=== PATIENT | male | born 1995 | race Asian ===

== ENCOUNTER 2024-11-17 16:22 | Emergency (ER) | payer OTHER ==
[~2024-11-17] VITALS: Ht 180.3 cm; Wt 97.0 kg
[2024-11-17 16:29] VITALS: BP 146/94; PULSE 114; RESP 18; TEMP 36.7; O2SAT 94
[2024-11-17 17:20] LABS: HEMATOCRIT. 44.5 % (42.0-52.0); HEMOGLOBIN. 15.2 g/dL (14.0-18.0); LYMPHOCYTES % 13.6 % (20.0-50.0); MEAN CORPUSCULAR HEMOGLOBIN 32.8 pg (28.0-32.0); MEAN CORPUSCULAR HGB CONC 34.2 g/dL (31.0-37.0); MEAN CORPUSCULAR VOLUME 95.9 fL (80.0-94.0); MEAN PLATELET VOLUME 9.2 fl (7.4-10.4); MONOCYTES % 4.9 % (2.0-8.0); NEUTROPHILS % 78.5 % (40.0-76.0); PLATELET 179 x1000/uL (130-400); RED BLOOD CELL COUNT 4.64 mill/uL (4.7-6.1); RED CELL DISTRIBUTION WIDTH 14.3 % (11.6-14.6); WHITE BLOOD COUNT 7.1 x1000/uL (4.5-11.0)
[2024-11-17 17:29] LABS: CHLORIDE 103 mEq/L (98-107); POTASSIUM 3.4 mEq/L (3.5-5.1); SODIUM 141 mEq/L (136-145)
[2024-11-17 17:30] LABS: CARBON DIOXIDE 23 mEq/L (21-32)
[2024-11-17 17:31] LABS: CALCIUM 9.5 mg/dL (8.7-10.4)
[2024-11-17 17:35] LABS: CREATININE 0.8 mg/dL (0.6-1.3)
[2024-11-17 17:36] LABS: GLUCOSE 129 mg/dL (70-105); UREA NITROGEN BLOOD < 5 mg/dL (9-23)
[2024-11-17 17:37] LABS: ALANINE AMINOTRANSFERASE 116 IU/L (10-49); ALBUMIN 4.3 g/dL (3.2-4.8); ASPARTATE AMINOTRANSFERASE 153 IU/L (<34)
[2024-11-17 17:38] LABS: PROTEIN TOTAL 8.6 g/dL (6.0-8.3)
[2024-11-17 17:39] LABS: INR 1.1; PROTHROMBIN TIME 11.9 sec (9.6-11.0)
[2024-11-17] MEDS: METOCLOPRAMIDE HCL 10MG/2ML VIAL IV STA (18:03)
[2024-11-17] MEDS: PANTOPRAZOLE SODIUM 40 MG/VIAL IV STA (18:03)
[2024-11-17] MEDS: SODIUM CHLORIDE 0.9% 1,000 ML IV ONE (18:04)
[2024-11-17] MEDS ORDERED: FOLI-43 MT (19:13)
[2024-11-17] MEDS ORDERED: PROT40 MT (19:13)
[2024-11-17] MEDS ORDERED: THIA250T3 MT (19:13)
== END 2024-11-17 19:49 | disposition home or self-care (01) ==
LOC: ER 16:22
DX: K22.6 Gastro-esophageal laceration-hemorrhage syndrome (principal); K76.0 Fatty (change of) liver, not elsewhere classified; R74.01 Elevation of levels of liver transaminase levels; F10.90 Alcohol use, unspecified, uncomplicated; Z79.899 Other long term (current) drug therapy; Y90.9 Presence of alcohol in blood, level not specified
CPT/HCPCS: 80076; 80048; 83690; 85025; 85610; 86850; 86900; 86901; 36415; 74176; 96361; 96374; 96375; 99285; J2765; J2470; J7030; Z7610